=== PATIENT | male | born 1950 | race Caucasian/White ===

== ENCOUNTER → 2018-06-15 00:47 | Outpatient (CLI) | payer MEDICARE, OTHER, SELFPAY ==
--- NOTE | 2018-06-15 07:12 | MERGEMPI_ITS ---
*[facility]* *[facility]* [address] [place] [address] Myocardial Perfusion Imaging - SPECT Hector protocol Date of study: 06/15/2018 *PATIENT PRESENTATION* Height: 175.3cm (69in) Blood Pressure: Weight: 75kg (165lb) BSA: 1.92m^2 Referring physician: Esdras Whitmore Ordering physician: Thomas John Impressions: - Junctional tachycardia in early recovery which resolved appropriately. - Normal myocardial perfusion and contraction after maximal exercise. Summary: 1. Myocardial perfusion imaging: No myocardial perfusion defects noted. 2. The calculated left ventricular ejection fraction after stress: 63%. LV global systolic function is normal. No left ventricular regional motion abnormality. 3. Stress ECG conclusions: The stress ECG is negative. Nonsustained junctional tachycardia in early recovery. 4. Stress: The target heart rate was achieved. The heart rate response to stress is normal. There is a normal resting blood pressure with an appropriate response to stress. The patient experienced no chest pain during stress. Exercise capacity is good (10 METS). 5. Imaging information: gated. Image quality reduced due to diaphragmatic attenuation. Attenuation correction used. Indication: R94.31. History: REASON FOR TESTING: WORSENING GERD SX, 15 LB WEIGHT LOSS. WAS TO HAVE ENDOSCOPY AT [facility] BUT, HE WAS TACHYCARDIC, AND HAD AN ABNORMAL EKG BY ANESTHESIOLOGIST. IT WAS READ JUNCTIONAL RHYTHM, HR [address] DEPRESSION. PMH: ROLDAN PROCEDURE, LONG HX OF GERD, RECENT 15 LB WEIGHT LOSS, ABNORMAL EKG IN [facility]. AP, JEFFERY, HIATAL HERNIA REPAIR,SHOULDER SURGERY. FAMILY HX: FATHER-TOSHA AT AGE 90. SMOKING:NEVER SMOKER. EXCERCISE: Risk factors: Cholesterol: 172mg/dl. HDL: 40mg/dl. LDL: 104mg/dl. Triglycerides: 198mg/dl. ALLERGIES: BEE POLLEN, FAMOTADINE. MEDICATIONS: ANASTROZOLE 1 MG 2X/WEEK, ASPIRIN 325 MG DAILY, ATORVASTATIN 20 MG DAILY, CLONAZEPAM 0.5 MG HS NEEDED, SPIPEN NEEDED, GLUCOSAMINE/ CHONDROITIN 1 DAILY, MULTIVITAMIN 1 DAILY, OMEGA-3 FATTY ACIDS 2 CAPS DAILY, OMEPRAZOLE 40 MG DAILY, RANITIDINE 150 MG BID, SILDENAFIL CITRATE 100 MG NEEDED, TESTOSTERONE 5 GM TOPICAL DAILY. Imaging Technique: Protocol: Hector protocol. Acquisition: Gated SPECT; 1 day - rest/stress. The patient was imaged in the supine position. Attenuation correction used. Isotope administration: - Rest. Tc[99m]-sestamibi. Dose: 10.9mCi. Injection time: 11:35 AM. Injection to stress time: 00:45. - Stress. Tc[99m]-sestamibi. Dose: 31mCi. Injection time: 01:30 PM. 1-2 min before end of exercise Baseline ECG: NO EKG AVAILABLE FOR COMPARISON. TODAY'S EKG- SINUS BRADYCARDIA, HR 57. Normal ECG. Stress protocol: + +---+ +----+ !Stage !HR !BP (mmHg) !Sat ! + +---+ +----+ !Baseline supine !57 !122/78 (93) !----! + +---+ +----+ !Baseline standing !70 !126/82 (97) !98% ! + +---+ +----+ !Stage I; 1.7mph, 10degrees; 3 min !103!134/76 (95) !----! + +---+ +----+ !Stage II; 2.5mph, 12degrees; 3 min!121!144/78 (100)!100%! + +---+ +----+ !Recovery; 1 min !146!138/68 (91) !----! + +---+ +----+ !Recovery; 3 min !114!136/68 (91) !----! + +---+ +----+ !Recovery; 6 min !107!114/70 (85) !----! + +---+ +----+ !Recovery; 9 min !82 !114/68 (83) !----! + +---+ +----+ * Stress results: Maximal heart rate during stress was 148bpm (97% of maximal predicted heart rate). The maximal predicted heart rate was 153bpm. The target heart rate was achieved. The heart rate response to stress is normal. There is a normal resting blood pressure with an appropriate response to stress. The rate-pressure product for the peak heart rate and blood pressure was 65598of Hg/min. The patient experienced no chest pain during stress. Exercise capacity is good (10 METS). Stress ECG: EXCERCISE TESTING ENDED IN 8 MINS, 01 SECS DUE TO FATIGUE . MAX HR WAS 148, 96% OF TARGET. NORMAL BLOOD PRESSURE RESPONSE. METS: 10.16 ECTOPY: RARE APC NOTED. ANGINA: NO REPORTED CHEST PAIN OR PRESSURE. ISCHEMIA: NO ISCHEMIC CHANGES NOTED. FUNCTIONAL CAPACITY: AVERAGE CAPACITY. The stress ECG is negative. Nonsustained junctional tachycardia in early recovery. Hay treadmill score: 8. This score predicts a low risk of cardiac events. Myocardial perfusion: Imaging information: gated. Image quality reduced due to diaphragmatic attenuation. Left ventricular size is normal. No myocardial perfusion defects noted. Ventricular Function (Wall Motion): The calculated left ventricular ejection fraction after stress: 63%. LV global systolic function is normal. No left ventricular regional motion abnormality. Study data: Esdras Whitmore MD supervised and was readily available during the procedure. This study was interpreted by [facility]. Study status: Routine. Consent: The risks, benefits, and alternatives to the procedure were explained to the patient and informed consent was obtained. Procedure: Initial setup. A baseline ECG was recorded. Surface ECG leads and manual cuff blood pressure measurements were monitored. Heart sounds: Normal. Lung sounds: Normal. Treadmill exercise testing was performed using the Hecotr protocol. Study completion: All catheters inserted during the procedure were removed. The patient tolerated the procedure well and was discharged from the lab. Discharge: The patient left the laboratory in stable condition. Birthdate: Patient birthdate: 1950. Sex: Gender: male. Study date: Study date: 06/15/2018. Study time: 07:12 AM. Signature Documentation: - The imaging portion of this study was interpreted by Nuclear Restuarant Crew Worker Esdras Whitmore MD. - The imaging portion of this study was interpreted by Nuclear Radiologist Jessica Daniels MD. - The Stress ECG portion of this study was interpreted by Esdras Whitmore MD. Electronically signed by Esdras Whitmore 06/15/2018 15:07
== END ==
PROVIDERS: PCP Emergency Medicine; Visit Provider Emergency Medicine
DX: R94.31 Abnormal electrocardiogram [ECG] [EKG] (principal); R00.0 Tachycardia, unspecified; I47.1 Supraventricular tachycardia
CPT/HCPCS: 78452; 93017; 93016; 93018

== ENCOUNTER 2019-04-05 09:36 | Outpatient (CLI) | payer MEDICARE, OTHER, SELFPAY ==
[2019-04-06 16:33] LABS: PSA, Screening 0.9 ng/ml (0-4.5)
[2019-04-09 11:58] LABS: Testosterone, Free 26.6 ng/dL (3.47-13.0); Testosterone, Total 760 ng/dL (240-950)
[2019-04-10 12:39] LABS: Estradiol, Mass Spectrometry <10 pg/mL (10-40); Estrone 12 pg/mL (10-60)
[2019-04-11 10:11] LABS: Dihydrotestosterone, Serum 928 pg/mL (112-955)
== END 2019-04-05 09:56 ==
PROVIDERS: PCP Emergency Medicine; Visit Provider Emergency Medicine
DX: E29.1 Testicular hypofunction (principal); Z12.5 Encounter for screening for malignant neoplasm of prostate
CPT/HCPCS: 36415; 84153; 84402; 84403; 82642; 82670; 82679

== ENCOUNTER 2020-04-15 04:30 | Outpatient (CLI) | payer MEDICARE, OTHER, SELFPAY ==
[2020-04-15 11:40] LABS: Abs Immature Grans 0.01 k/cumm (0.0-0.09); Absolute Basophil Count 0.07 k/cumm (0.0-0.2); Absolute Eosinophil Count 0.22 k/cumm (0.0-0.7); Absolute Lymphocyte Count 1.82 k/cumm (1.2-3.4); Absolute Monocyte Count 0.62 k/cumm (0.11-0.7); Basophils % 1.3; HCT 39.1 % (40.0-50.0); HGB 12.6 g/dL (13.5-17.5); Immature Grans % 0.2 %; Lymphocytes % 33.5; Mean Corp. HGB Concentration 32.2 g/dL (32.0-36.0); Mean Corpuscular Hemoglobin 25.3 pg (27.0-33.0); Mean Corpuscular Volume 78.4 fL (80-95); Mean Platelet Volume 9.1 fL (8.0-11.0); Monocytes % 11.4; Neutrophils % 49.6; Platelet Count 267 x1000/uL (130-400); RBC 4.99 m/cumm (4.50-6.00); White Blood Cell Count 5.44 k/cumm (4.4-10.8)
[2020-04-15 12:27] LABS: ALT 28 U/L (16-63); AST 20 U/L (15-37); Albumin 3.9 g/dL (3.4-5.0); Alkaline Phosphatase 87 U/L (46-116); Anion Gap 7.2 mmol/L (3-11); BUN 26 mg/dL (7-18); C-Reactive Protein 0.05 mg/dL (0.0-0.3); CO2 27.8 mmol/L (21.0-32.0); CREATININE 1.01 mg/dL (0.70-1.30); Chloride 110 mmol/L (98-107); Glucose 94 mg/dL (74-106); Potassium 4.6 mmol/L (3.5-5.1); Sodium 145 mmol/L (136-145); Total Protein 6.7 g/dL (6.4-8.2)
[2020-04-15 12:30] LABS: ESR 7 mm/hr (1-20)
[2020-04-16 11:09] LABS: Lyme Ab w Rflx to Lyme Confirm Negative (Negative)
== END 2020-04-15 04:50 ==
PROVIDERS: PCP Emergency Medicine; Visit Provider Emergency Medicine
DX: R53.83 Other fatigue (principal); K40.90 Unilateral inguinal hernia, without obstruction or gangrene, not specified as recurrent; M79.18 Myalgia, other site
CPT/HCPCS: 36415; 80053; 85652; 85025; 86140; 86618

== ENCOUNTER 2020-04-19 04:06 | Outpatient (CLI) | payer MEDICARE, OTHER, SELFPAY ==
[2020-04-19 13:19] LABS: Abs Immature Grans 0.01 k/cumm (0.0-0.09); Absolute Basophil Count 0.04 k/cumm (0.0-0.2); Absolute Eosinophil Count 0.26 k/cumm (0.0-0.7); Absolute Lymphocyte Count 1.71 k/cumm (1.2-3.4); Absolute Monocyte Count 0.49 k/cumm (0.11-0.7); Absolute Neutrophil Count 4.23 k/cumm (1.2-6.7); Basophils % 0.6; Eosinophils % 3.9; HGB 12.2 g/dL (13.5-17.5); Immature Grans % 0.1 %; Lymphocytes % 25.4; Mean Corp. HGB Concentration 32.1 g/dL (32.0-36.0); Mean Corpuscular Hemoglobin 25.1 pg (27.0-33.0); Mean Corpuscular Volume 78.2 fL (80-95); Mean Platelet Volume 8.9 fL (8.0-11.0); Monocytes % 7.3; Neutrophils % 62.7; Platelet Count 283 x1000/uL (130-400); RBC 4.86 m/cumm (4.50-6.00); White Blood Cell Count 6.74 k/cumm (4.4-10.8)
[2020-04-19 13:59] LABS: Iron 17 ug/dL (65-175); Total Iron Binding Capacity 319 ug/dL (250-450); Transferrin Sat 5 % (20-55)
[2020-04-19 14:10] LABS: ESR 8 mm/hr (1-20)
[2020-04-19 14:28] LABS: Ferritin 10 ng/mL (26-388); Vitamin B12 661 pg/mL (193-986)
[2020-04-19 14:29] LABS: Folate > 20.0 ng/mL (8.6-20.0)
[2020-04-19 14:49] LABS: C-Reactive Protein < 0.05 mg/dL (0.0-0.3)
== END 2020-04-19 04:26 ==
PROVIDERS: PCP Emergency Medicine; Visit Provider Emergency Medicine
DX: D64.9 Anemia, unspecified (principal)
CPT/HCPCS: 36415; 85652; 82607; 82728; 82746; 83540; 83550; 85025; 86140

== ENCOUNTER → 2020-04-25 10:52 | Outpatient (BNVA) | payer MEDICARE, OTHER, SELFPAY | PROVIDERS: PCP Emergency Medicine; Referring Provider Emergency Medicine; Visit Provider Surgery | DX: D50.8 Other iron deficiency anemias (principal) | CPT/HCPCS: 99203 ==

== ENCOUNTER 2020-05-22 13:15 | Outpatient (CLI) | payer MEDICARE, OTHER, SELFPAY ==
--- NOTE | 2020-05-22 11:15 | DI.RAD_ITS ---
EXAM: XR PELVIS AP CLINICAL HISTORY: hamstring injury TECHNIQUE: COMPARISON: CT ABD PELVIS WITH CONTRAST from 08/26/2010 CR XR FEMUR RT from 05/22/2020 FINDINGS: An AP view of the pelvis and four views of the femur were obtained. There is narrowing of the cartil aginous joint spaces of both hips superiorly, moderate. Mild acetabular marginal osteophyte formatio n noted. Mild DJD of the SI joints bilaterally. Pelvic phlebolith noted on the left. Unremarkable bowel gas pattern. There are degenerative changes of the medial tibiofemoral joint. No significant bony abnormality see n involving the femoral metaphyseal diaphyseal region. IMPRESSION:
== END 2020-05-22 13:35 ==
PROVIDERS: PCP Emergency Medicine; Referring Provider Emergency Medicine; Visit Provider Student in an Organized Health Care Education/Training Program
DX: M16.0 Bilateral primary osteoarthritis of hip (principal); M53.3 Sacrococcygeal disorders, not elsewhere classified; M17.11 Unilateral primary osteoarthritis, right knee; S76.311A Strain of muscle, fascia and tendon of the posterior muscle group at thigh level, right thigh, initial encounter; S76.012A Strain of muscle, fascia and tendon of left hip, initial encounter; S39.011A Strain of muscle, fascia and tendon of abdomen, initial encounter; X50.9XXA Other and unspecified overexertion or strenuous movements or postures, initial encounter
CPT/HCPCS: 73552; 99204; 99215; 72170

== ENCOUNTER → 2020-06-06 09:44 | Outpatient (BNVA) | payer MEDICARE, OTHER, SELFPAY | PROVIDERS: PCP Emergency Medicine; Referring Provider Emergency Medicine; Visit Provider Surgery | DX: D64.89 Other specified anemias (principal) | CPT/HCPCS: 99212 ==

== ENCOUNTER 2020-07-01 02:36 | Outpatient (CLI) | payer MEDICARE, SELFPAY ==
[2020-07-01 09:13] LABS: Abs Immature Grans 0.01 10^3/uL (0.0-0.06); Absolute Basophil Count 0.07 10^3/uL (0.0-0.2); Absolute Eosinophil Count 0.47 10^3/uL (0.0-0.7); Absolute Lymphocyte Count 2.27 10^3/uL (1.2-3.4); Absolute Monocyte Count 0.48 10^3/uL (0.1-0.8); Absolute Neutrophil Count 2.51 10^3/uL (1.2-6.7); Basophils % 1.2; Eosinophils % 8.1; HGB 13.3 g/dL (13.5-17.5); Immature Grans % 0.2; Lymphocytes % 39.1; MCH 23.3 pg (27.0-33.0); MCHC 30.2 % (32.0-36.0); MCV 77.2 fL (80-95); MPV 8.8 fL (8.0-11.0); Monocytes % 8.3; Neutrophils % 43.1; Nucleated RBC 0 %; Platelet Count 252 10^3/uL (130-400); RDW 15.5 % (11.8-14.1); RDW-SD 42.8 fL; WBC 5.81 10^3/uL (4.4-10.8)
[2020-07-01 09:49] LABS: Iron 53 ug/dL (65-175); Total Iron Binding Capacity 329 ug/dL (250-450); Transferrin Sat 16 % (20-55)
[2020-07-01 10:03] LABS: Ferritin 16 ng/mL (26-388)
[2020-07-04 10:28] LABS: Estradiol, Mass Spectrometry <10 pg/mL (10-40); Estrone <10 pg/mL (10-60)
[2020-07-04 12:44] LABS: Testosterone, Total 650 ng/dL (240-950)
[2020-07-05 11:39] LABS: Dihydrotestosterone, Serum 621 pg/mL (112-955)
== END 2020-07-01 02:56 ==
PROVIDERS: PCP Emergency Medicine; Visit Provider Emergency Medicine
DX: D64.9 Anemia, unspecified (principal); E29.1 Testicular hypofunction
CPT/HCPCS: 36415; 84402; 84403; 82642; 82670; 82679; 82728; 83540; 83550; 85025

== ENCOUNTER 2020-07-19 19:04 | Outpatient (CLI) | payer MEDICARE, SELFPAY ==
--- NOTE | 2020-07-19 08:30 | DI.CT_ITS ---
EXAM: CT ABDOMEN PELVIS W CLINICAL HISTORY: right abd pain, GI bleeding, R10.9, K92.2. TECHNIQUE: Imaging Protocol: Axial computed tomography images with coronal and sagittal reformatted images were created and reviewed CONTRAST MATERIAL: Intravenous: Omnipaque 350 Contrast volume:100 cc Oral: yes COMPARISON: CT ABD PELVIS WITH CONTRAST from 08/26/2010 FINDINGS: ABDOMEN: Lung Bases: Normal where visualized. Liver: Multiple low-density liver lesions are again noted, consistent with cysts. The liver no longe r shows significant fatty infiltration. The patient is status post cholecystectomy. There is no trent iary dilatation. The spleen, adrenals, pancreas and kidneys are unremarkable. PELVIS: Bladder: Symmetric distention, no gross wall thickening. Bowel: Administered oral contrast extends to the level of the cecum. There is severe diverticulosis, greatest in the sigmoid region. There is no evidence of diverticulitis. There is no gross evidence of a mass. There isno obstruction or bowel wall thickening. Increased stool is seen in the cecum. There are surgical clips near the GE junction. There is a tiny hiatal hernia. There is a question o f wall thickening of the antrum of the stomach versus contraction. There is no evidence of perforati on. Peritoneal cavity: No ascites, collection or mesenteric inflammatory response. Bones: Within normal limits. Reproductive organs: Mildly enlarged prostate. Lymph nodes: Unremarkable. Impression: Unremarkable CT scan of the abdomen and pelvis. RADIATION DOSE DELIVERED: Total DLP DATA REPOSITORY: All CT scans at this facility are submitted to the National Radiology Data Registry (NRDR) Dose Index Registry (DIR) with the [employer] (A[employer]). RADIATION OPTIMIZATION: All CT scans at this facility use at least one of these dose optimization te chniques: automated exposure control; mA and/or kV adjustment per patient size (includes targeted exa ms where dose is matched to clinical indication); or iterative reconstruction.
[2020-07-19 09:33] LABS: HCT 41.3 % (40.0-50.0); HGB 12.5 g/dL (13.5-17.5); MCH 23.6 pg (27.0-33.0); MCHC 30.3 % (32.0-36.0); MCV 78.1 fL (80-95); MPV 8.5 fL (8.0-11.0); Platelet Count 236 10^3/uL (130-400); RBC 5.29 10^6/uL (4.36-5.78); RDW 16.5 % (11.8-14.1); RDW-SD 46.5 fL; WBC 4.87 10^3/uL (4.4-10.8)
[2020-07-19] MEDS: Omnipaque 350 MG/ML 50 ML BTL IJ (09:34)
[2020-07-19 09:47] LABS: ALT 28 U/L (16-63); AST 17 U/L (15-37); Albumin 3.5 g/dL (3.4-5.0); Alkaline Phosphatase 76 U/L (46-116); Anion Gap 3.7 mmol/L (3-11); BUN 23 mg/dL (7-18); Bilirubin, Total 0.9 mg/dL (0.2-1.0); CO2 30.3 mmol/L (21.0-32.0); CREATININE 1.18 mg/dL (0.70-1.30); Calcium 9.2 mg/dL (8.5-10.1); Chloride 108 mmol/L (98-107); Glucose 75 mg/dL (74-106); Potassium 4.2 mmol/L (3.5-5.1); Sodium 142 mmol/L (136-145); Total Protein 6.8 g/dL (6.4-8.2)
[2020-07-19 10:35] LABS: Iron 29 ug/dL (65-175); Total Iron Binding Capacity 293 ug/dL (250-450); Transferrin Sat 10 % (20-55)
[2020-07-19] MEDS: Breeza Beverage 473 ML BTL PO ×2 (10:37→10:38)
[2020-07-19] MEDS: Omnipaque 350 MG/ML 100 ML BTL IJ (10:37)
[2020-07-19] MEDS: Normal Saline - Diluent 50 ML VIAL IV (10:37)
[2020-07-19] MEDS: Normal Saline Flush 10 ML SYR IVP (10:38)
== END 2020-07-19 19:24 ==
PROVIDERS: PCP Emergency Medicine; Visit Provider Emergency Medicine
DX: K92.2 Gastrointestinal hemorrhage, unspecified (principal); R10.9 Unspecified abdominal pain
CPT/HCPCS: 80053; 85027; 74177; 83540; 83550; J3490; Q9967

== ENCOUNTER 2020-09-18 15:05 | Outpatient (REF) | payer MEDICARE, SELFPAY ==
[2020-09-18 22:34] LABS: Abs Immature Grans 0.02 10^3/uL (0.0-0.06); Absolute Basophil Count 0.08 10^3/uL (0.0-0.2); Absolute Eosinophil Count 0.32 10^3/uL (0.0-0.7); Absolute Lymphocyte Count 2.56 10^3/uL (1.2-3.4); Absolute Monocyte Count 0.57 10^3/uL (0.1-0.8); Absolute Neutrophil Count 3.43 10^3/uL (1.2-6.7); Basophils % 1.1; Eosinophils % 4.6; HCT 43.1 % (40.0-50.0); HGB 13.6 g/dL (13.5-17.5); Immature Grans % 0.3; Lymphocytes % 36.7; MCH 24.4 pg (27.0-33.0); MCHC 31.6 % (32.0-36.0); MCV 77.4 fL (80-95); MPV 10.3 fL (8.0-11.0); Monocytes % 8.2; Neutrophils % 49.1; Nucleated RBC 0 %; Platelet Count 282 10^3/uL (130-400); RBC 5.57 10^6/uL (4.36-5.78); RDW-SD 44.6 fL; WBC 6.98 10^3/uL (4.4-10.8)
[2020-09-18 22:58] LABS: Iron 29 ug/dL (65-175); Total Iron Binding Capacity 318 ug/dL (250-450); Transferrin Sat 9 % (20-55)
[2020-09-18 23:02] LABS: Ferritin 17 ng/mL (26-388)
== END 2020-09-18 15:25 ==
LOC: NCHCN 15:05
PROVIDERS: PCP Emergency Medicine; Visit Provider Emergency Medicine
DX: K40.90 Unilateral inguinal hernia, without obstruction or gangrene, not specified as recurrent (principal); Z98.890 Other specified postprocedural states; D50.9 Iron deficiency anemia, unspecified
CPT/HCPCS: 82728; 83540; 83550; 85025

== ENCOUNTER 2020-10-02 01:26 | Outpatient (RCR) | payer MEDICARE, SELFPAY ==
[2020-09-26] MEDS: SODIUM FER. GLUC./SUC. 125 MG in Normal Saline 100 ML 110 MG IVPB (08:50)
[2020-09-26] MEDS: Normal Saline Flush 10 ML SYR IVP (08:51)
[2020-10-02] MEDS: SODIUM FER. GLUC./SUC. 125 MG in Normal Saline 100 ML 110 MG IVPB (08:24)
[2020-10-02] MEDS: Normal Saline Flush 10 ML SYR IVP (08:29)
[2020-10-02 10:22] LABS: HCT 40.3 % (40.0-50.0); HGB 12.6 g/dL (13.5-17.5); MCHC 31.3 % (32.0-36.0); MPV 9.3 fL (8.0-11.0); Platelet Count 231 10^3/uL (130-400); RBC 5.04 10^6/uL (4.36-5.78); RDW 17.1 % (11.8-14.1); RDW-SD 47.5 fL; WBC 5.16 10^3/uL (4.4-10.8)
[2020-10-02 10:45] LABS: Ferritin 53 ng/mL (26-388)
== END 2020-10-07 23:59 | disposition home or self-care (01) ==
LOC: INF 01:26
PROVIDERS: PCP Emergency Medicine; Visit Provider Family Medicine
DX: D50.9 Iron deficiency anemia, unspecified (principal)
CPT/HCPCS: 36415; 85027; 96365; 82728; J3490

== ENCOUNTER 2020-10-28 02:12 | Outpatient (CLI) | payer MEDICARE, SELFPAY ==
[2020-10-28 11:09] LABS: HCT 45.6 % (40.0-50.0); HGB 14.6 g/dL (13.5-17.5); MCV 81.1 fL (80-95); MPV 8.9 fL (8.0-11.0); Platelet Count 258 10^3/uL (130-400); RBC 5.62 10^6/uL (4.36-5.78); RDW 16.5 % (11.8-14.1); RDW-SD 48.4 fL; WBC 9.54 10^3/uL (4.4-10.8)
[2020-10-28 11:36] LABS: Ferritin 27 ng/mL (26-388)
== END 2020-10-28 02:32 ==
PROVIDERS: PCP Emergency Medicine; Visit Provider Emergency Medicine
DX: D50.9 Iron deficiency anemia, unspecified (principal)
CPT/HCPCS: 36415; 85027; 82728

== ENCOUNTER 2020-11-06 02:23 | Outpatient (RCR) | payer MEDICARE, SELFPAY ==
[2020-11-06] MEDS: SODIUM FER. GLUC./SUC. 125 MG in Normal Saline 100 ML 110 MG IVPB (12:49)
[2020-11-06] MEDS: Normal Saline Flush 10 ML SYR IVP (12:49)
== END 2020-11-07 23:59 | disposition home or self-care (01) ==
LOC: INF 02:23
PROVIDERS: PCP Emergency Medicine; Visit Provider Family Medicine
DX: D50.9 Iron deficiency anemia, unspecified (principal)
CPT/HCPCS: 96365; J3490

== ENCOUNTER 2020-11-29 19:01 | Outpatient (REF) | payer MEDICARE, SELFPAY ==
[2020-12-04 12:25] LABS: Testosterone, Free 34.3 ng/dL (3.47-13.0); Testosterone, Total 1010 ng/dL (240-950)
[2020-12-04 15:05] LABS: Estradiol, Mass Spectrometry <10 pg/mL (10-40); Estrone <10 pg/mL (10-60)
[2020-12-05 12:13] LABS: Dihydrotestosterone, Serum 407 pg/mL (112-955)
== END 2020-11-29 19:21 ==
LOC: LBN 19:01
PROVIDERS: PCP Emergency Medicine; Visit Provider Emergency Medicine
DX: E29.1 Testicular hypofunction (principal)
CPT/HCPCS: 84402; 84403; 82642; 82670; 82679

== ENCOUNTER 2021-02-27 03:53 | Outpatient (CLI) | payer MEDICARE, SELFPAY ==
[2021-02-27 08:57] LABS: HCT 51.3 % (40.0-50.0); HGB 16.9 g/dL (13.5-17.5); MCH 28.5 pg (27.0-33.0); MCHC 32.9 % (32.0-36.0); MCV 86.7 fL (80-95); Platelet Count 243 10^3/uL (130-400); RBC 5.92 10^6/uL (4.36-5.78); RDW 13.1 % (11.8-14.1); RDW-SD 41.7 fL; WBC 6.88 10^3/uL (4.4-10.8)
[2021-02-27 09:34] LABS: Ferritin 70 ng/mL (26-388)
== END 2021-02-27 03:54 | disposition home or self-care (01) ==
LOC: LBO 03:53
PROVIDERS: PCP Emergency Medicine; Visit Provider Emergency Medicine
DX: D50.9 Iron deficiency anemia, unspecified (principal); K40.90 Unilateral inguinal hernia, without obstruction or gangrene, not specified as recurrent
CPT/HCPCS: 36415; 85027; 82728

== ENCOUNTER 2021-04-15 10:11 | Outpatient (REF) | payer MEDICARE, SELFPAY ==
[2021-04-15 14:17] LABS: Abs Immature Grans 0.02 10^3/uL (0.0-0.06); Absolute Basophil Count 0.07 10^3/uL (0.0-0.2); Absolute Eosinophil Count 0.33 10^3/uL (0.0-0.7); Absolute Lymphocyte Count 1.73 10^3/uL (1.2-3.4); Absolute Monocyte Count 0.46 10^3/uL (0.1-0.8); Absolute Neutrophil Count 3.57 10^3/uL (1.2-6.7); Basophils % 1.1; Eosinophils % 5.3; HCT 50.2 % (40.0-50.0); HGB 16.5 g/dL (13.5-17.5); Immature Grans % 0.3; MCH 28.5 pg (27.0-33.0); MCHC 32.9 % (32.0-36.0); MCV 86.9 fL (80-95); MPV 9.9 fL (8.0-11.0); Monocytes % 7.4; Neutrophils % 57.9; Nucleated RBC 0 %; Platelet Count 208 10^3/uL (130-400); RBC 5.78 10^6/uL (4.36-5.78); RDW 13.2 % (11.8-14.1); RDW-SD 41.9 fL; WBC 6.18 10^3/uL (4.4-10.8)
[2021-04-15 15:28] LABS: ALT 30 U/L (16-63); AST 19 U/L (15-37); Albumin 3.9 g/dL (3.4-5.0); Alkaline Phosphatase 92 U/L (46-116); Bilirubin, Total 1.7 mg/dL (0.2-1.0); Ferritin 34 ng/mL (26-388); Total Protein 6.7 g/dL (6.4-8.2)
[2021-04-15 15:37] LABS: Bilirubin, Direct 0.3 mg/dL (0.0-0.2)
== END 2021-04-15 10:12 | disposition home or self-care (01) ==
LOC: LBN 10:11
PROVIDERS: PCP Emergency Medicine; Visit Provider Emergency Medicine
DX: D50.9 Iron deficiency anemia, unspecified (principal); K40.90 Unilateral inguinal hernia, without obstruction or gangrene, not specified as recurrent; E29.1 Testicular hypofunction; Z98.890 Other specified postprocedural states
CPT/HCPCS: 80076; 84402; 84403; 84410; 82728; 85025

== ENCOUNTER 2021-04-18 04:01 | Outpatient (CLI) | payer MEDICARE, SELFPAY ==
[2021-04-23 23:10] LABS: Testosterone, Bioavailable 762 ng/dL (40-168); Testosterone, Free 55.9 ng/dL (3.28-12.2); Testosterone, Total 1270 ng/dL (240-950)
== END 2021-04-18 04:02 | disposition home or self-care (01) ==
LOC: LBO 04:01
PROVIDERS: PCP Emergency Medicine; Visit Provider Emergency Medicine
DX: E29.1 Testicular hypofunction (principal)
CPT/HCPCS: 36415; 84402; 84403; 84410

== ENCOUNTER 2021-06-27 02:04 | Outpatient (CLI) | payer MEDICARE, SELFPAY ==
[2021-06-27 22:25] LABS: PSA, Screening 2.1 ng/mL (0.0-6.5)
[2021-07-05 18:01] LABS: Testosterone, Free 28.2 ng/dL (3.28-12.2); Testosterone, Total 909 ng/dL (240-950)
== END 2021-06-27 02:05 | disposition home or self-care (01) ==
LOC: LOS 02:04
PROVIDERS: PCP Emergency Medicine; Visit Provider Emergency Medicine
DX: E29.1 Testicular hypofunction (principal); Z12.5 Encounter for screening for malignant neoplasm of prostate
CPT/HCPCS: 36415; 84153; 84402; 84403

== ENCOUNTER 2021-09-11 12:57 | Outpatient (REF) | payer MEDICARE, SELFPAY ==
[2021-09-13 09:28] LABS: COVID-19 RT-PCR UVMMC Result Negative (Negative)
== END 2021-09-11 12:58 | disposition home or self-care (01) ==
LOC: LBN 12:57
PROVIDERS: PCP Emergency Medicine; Visit Provider Nurse Practitioner Family
DX: Z20.822 Contact with and (suspected) exposure to COVID-19 (principal)
CPT/HCPCS: U0003

== ENCOUNTER 2021-09-19 12:58 | Outpatient (REF) | payer MEDICARE, SELFPAY ==
[2021-09-19 16:24] LABS: Abs Immature Grans 0.03 10^3/uL (0.0-0.06); HCT 43.1 % (40.0-50.0); HGB 14.4 g/dL (13.5-17.5); MCH 29.7 pg (27.0-33.0); MCHC 33.4 % (32.0-36.0); MCV 88.9 fL (80-95); MPV 9.7 fL (8.0-11.0); Nucleated RBC 0 %; Platelet Count 199 10^3/uL (130-400); RBC 4.85 10^6/uL (4.36-5.78); RDW 12.3 % (11.8-14.1); RDW-SD 40.4 fL; WBC 8.99 10^3/uL (4.4-10.8)
[2021-09-19 16:55] LABS: BUN 17 mg/dL (7-18); Calcium 9.1 mg/dL (8.5-10.1); Chloride 106 mmol/L (98-107); Glucose 181 mg/dL (74-106); Potassium 4.2 mmol/L (3.5-5.1); Sodium 142 mmol/L (136-145)
[2021-09-19 16:56] LABS: Anion Gap 8.3 mmol/L (3-11); CO2 27.7 mmol/L (21.0-32.0)
[2021-09-19 18:50] LABS: Absolute Basophil Count 0.09 10^3/uL (0.0-0.2); Absolute Lymphocyte Count 2.88 10^3/uL (1.2-3.4); Absolute Monocyte Count 0.63 10^3/uL (0.1-0.8); Absolute Neutrophil Count 5.39 10^3/uL (1.2-6.7); Atypical Lymphocytes % 21; Bands % 7
[2021-09-19 18:53] LABS: Diff Comment Manual Differential; RBC Morphology Normal
[2021-09-20 15:09] LABS: COVID-19 RT-PCR UVMMC Result Negative (Negative)
[2021-09-22 01:59] LABS: B. miyamotoi PCR Negative (Negative); Babesia divergens/MO-1 Negative (Negative); Babesia duncani Negative (Negative); Babesia microti Negative (Negative); Ehrlichia chaffeensis Negative (Negative); Ehrlichia ewingii/canis Negative (Negative); Ehrlichia muris eauclairensis Negative (Negative)
[2021-09-22 10:24] LABS: Lyme Ab w Rflx to Lyme Confirm Negative (Negative)
[2021-09-22 11:55] LABS: Anaplasma phagocytophilum Positive (Negative)
== END 2021-09-19 12:59 | disposition home or self-care (01) ==
LOC: LBN 12:58
PROVIDERS: PCP Emergency Medicine; Visit Provider Nurse Practitioner Family
DX: R68.83 Chills (without fever); R51.9 Headache, unspecified; Z20.822 Contact with and (suspected) exposure to COVID-19; W57.XXXA Bitten or stung by nonvenomous insect and other nonvenomous arthropods, initial encounter; R52 Pain, unspecified; R61 Generalized hyperhidrosis
CPT/HCPCS: 80048; 87798; U0003; U0005; 85025; 86618

== ENCOUNTER 2022-04-17 01:16 | Outpatient (CLI) | payer MEDICARE, SELFPAY ==
[2022-04-17 12:33] LABS: HCT 48.4 % (40.0-50.0); HGB 16.6 g/dL (13.5-17.5); MCH 30.3 pg (27.0-33.0); MCHC 34.3 % (32.0-36.0); MCV 88 fL (80-95); Platelet Count 221 10^3/uL (130-400); RBC 5.48 10^6/uL (4.36-5.78); RDW 12.1 % (11.8-14.1); RDW-SD 39.1 fL
[2022-04-17 13:28] LABS: ALT 23 U/L (16-63); Albumin 4.2 g/dL (3.4-5.0); Alkaline Phosphatase 86 U/L (46-116); Anion Gap 9.3 mmol/L (3-11); BUN 19 mg/dL (7-18); Bilirubin, Total 1.6 mg/dL (0.2-1.0); CO2 27.7 mmol/L (21.0-32.0); Calcium 9.4 mg/dL (8.5-10.1); Calculated LDL 85 mg/dL (<100); Chloride 105 mmol/L (98-107); Cholesterol 149 mg/dL (<200); Glucose 92 mg/dL (74-106); HDL Cholesterol 43 mg/dL (40-60); Potassium 4.5 mmol/L (3.5-5.1); Sodium 142 mmol/L (136-145); Total Protein 7.5 g/dL (6.4-8.2); Triglyceride 105 mg/dL (<150)
[2022-04-17 13:47] LABS: AST 27 U/L (15-37)
[2022-04-17 14:39] LABS: Hemoglobin A1C 5.2 % (<5.7)
[2022-04-21 15:35] LABS: Testosterone, Free 3.31 ng/dL (3.28-12.2); Testosterone, Total 138 ng/dL (240-950)
== END 2022-04-17 01:17 | disposition home or self-care (01) ==
LOC: LOS 01:16
PROVIDERS: PCP Family Medicine; Referring Provider Family Medicine; Visit Provider Family Medicine
DX: D50.9 Iron deficiency anemia, unspecified; K21.9 Gastro-esophageal reflux disease without esophagitis; R73.9 Hyperglycemia, unspecified; I10 Essential (primary) hypertension; E29.1 Testicular hypofunction
CPT/HCPCS: 36415; 80053; 80061; 84153; 84402; 84403; 85027; 83036

== ENCOUNTER 2023-06-09 18:39 | Outpatient (CLI) | payer MEDICARE, SELFPAY ==
[2023-06-09 15:48] LABS: Abs Immature Grans 0.01 10^3/uL (0.0-0.06); Absolute Basophil Count 0.07 10^3/uL (0.0-0.2); Absolute Lymphocyte Count 2.19 10^3/uL (1.2-3.4); Absolute Monocyte Count 0.51 10^3/uL (0.1-0.8); Absolute Neutrophil Count 3.47 10^3/uL (1.2-6.7); Basophils % 1.1; Eosinophils % 4.6; HCT 45.2 % (40.0-50.0); HGB 15.1 g/dL (13.5-17.5); Immature Grans % 0.2; Lymphocytes % 33.4; MCH 28.2 pg (27.0-33.0); MCHC 33.4 % (32.0-36.0); MCV 84 fL (80-95); MPV 8.9 fL (8.0-11.0); Monocytes % 7.8; Neutrophils % 52.9; Platelet Count 221 10^3/uL (130-400); RBC 5.36 10^6/uL (4.36-5.78); RDW-SD 40.2 fL; WBC 6.55 10^3/uL (4.4-10.8)
[2023-06-09 17:11] LABS: ALT 31 U/L (16-63); AST 22 U/L (15-37); Albumin 3.8 g/dL (3.4-5.0); Alkaline Phosphatase 83 U/L (46-116); Anion Gap 7.5 mmol/L (3-11); BUN 31 mg/dL (7-18); CO2 28.5 mmol/L (21.0-32.0); CREATININE 0.9 mg/dL (0.70-1.30); Calcium 9.1 mg/dL (8.5-10.1); Calculated LDL 110 mg/dL (<100); Chloride 108 mmol/L (98-107); Cholesterol 180 mg/dL (<200); Estimated GFR 90.74 (mL/min/1.73m2); Glucose 81 mg/dL (74-106); HDL Cholesterol 42 mg/dL (40-60); Potassium 4.2 mmol/L (3.5-5.1); Sodium 144 mmol/L (136-145); Total Protein 6.8 g/dL (6.4-8.2); Triglyceride 143 mg/dL (<150)
[2023-06-11 10:37] LABS: Hepatitis C Ab w Rflx HCV PCR Negative (Negative)
[2023-06-11 18:14] LABS: PSA, Ultrasensitive 1.8 ng/mL (<= 6.5)
[2023-06-15 17:38] LABS: Testosterone, Total 131 ng/dL (240-950)
== END 2023-06-09 18:40 | disposition home or self-care (01) ==
LOC: LBO 18:39
PROVIDERS: PCP Nurse Practitioner Family; Visit Provider Nurse Practitioner Family
DX: E78.5 Hyperlipidemia, unspecified (principal); Z00.00 Encounter for general adult medical examination without abnormal findings; N40.0 Benign prostatic hyperplasia without lower urinary tract symptoms
CPT/HCPCS: 36415; 80053; 80061; 84153; 84403; 86803; 85025

== ENCOUNTER 2024-04-03 12:04 | Outpatient (REF) | payer MEDICARE, SELFPAY ==
[2024-04-05 10:28] LABS: Lyme Ab w Rflx to Lyme Confirm Negative (Negative)
[2024-04-07 09:19] LABS: Anaplasma phagocytophilum Negative (Negative); B. miyamotoi PCR Negative (Negative); Babesia divergens/MO-1 Negative (Negative); Babesia duncani Negative (Negative); Babesia microti Negative (Negative); Ehrlichia chaffeensis Negative (Negative); Ehrlichia ewingii/canis Negative (Negative); Ehrlichia muris eauclairensis Negative (Negative)
== END 2024-04-03 12:05 | disposition home or self-care (01) ==
LOC: LBN 12:04
PROVIDERS: PCP Nurse Practitioner Family; Visit Provider Nurse Practitioner Family
DX: W57.XXXA Bitten or stung by nonvenomous insect and other nonvenomous arthropods, initial encounter (principal); S80.261A Insect bite (nonvenomous), right knee, initial encounter; X58.XXXA Exposure to other specified factors, initial encounter
CPT/HCPCS: 87798; 86618

== ENCOUNTER → 2024-04-27 12:59 | Outpatient (CLI) | payer MEDICARE, SELFPAY ==
--- NOTE | 2024-04-27 10:25 | DI.CT_ITS ---
Exam(s) CT ABDOMEN PELVIS W EXAM: CT ABDOMEN PELVIS W CLINICAL HISTORY: RLQ pain R10.31. TECHNIQUE: Imaging Protocol: Axial computed tomography images with coronal and sagittal reformatted images were created and reviewed CONTRAST MATERIAL: Intravenous: Omnipaque 350 Contrast volume:100 ml Oral: yes / COMPARISON: CT CT ABDOMEN PELVIS W from 07/19/2020 FINDINGS: ABDOMEN and PELVIS: Surgical clips at GE junction. Lung Bases: No acute findings. Liver: Mild hepatic steatosis. Stable tiny liver cysts. No suspicious mass. Gallbladder and biliary tract: Status post cholecystectomy. No biliary dilation. Pancreas: Normal density. No abnormal calcifications or inflammatory process. No evidence of mass. Spleen: Normal. Kidneys: Normal size, contour and axis. No radiodense stones. No obstructive uropathy. No suspicious masses seen. Adrenal glands: No masses seen. Vasculature: Abdominal aorta non-dilated. Soft tissues: Unremarkable. Bladder: No gross wall thickening. No calculi.No focal mass. Bowel: Prominent diverticulosis in the descending and sigmoid colon. No evidence of diverticulitis. No obstruction. No bowel wall thickening. Appendix not visualized. No right lower quadrant inflam matory changes. Peritoneal cavity: No ascites. No focal collection. No mesenteric inflammatory response. Bones: Unremarkable for age. Reproductive organs: Prostate mildly enlarged, and para seen on base of bladder.. Lymph nodes: No pathologically enlarged lymph nodes. IMPRESSION:: No acute abnormality in the abdomen or pelvis. Diverticulosis without evidence of diverticulitis. Enlarged prostate. RADIATION DOSE DELIVERED: 852.02mGy.cm Total DLP DATA REPOSITORY: All CT scans at this facility are submitted to the National Radiology Data Registry (NRDR) Dose Index Registry (DIR) with the [employer] (ACR). RADIATION OPTIMIZATION: All CT scans at this facility use at least one of these dose optimization te chniques: automated exposure control; mA and/or kV adjustment per patient size (includes targeted exa ms where dose is matched to clinical indication); or iterative reconstruction.
[2024-04-27] MEDS: Barium Sulfate 2% W/V-Creamy Vanilla Smoothie 450 ML BTL PO ×2 (13:18→13:19)
[2024-04-27 14:07] LABS: ALT 31 U/L (16-63); AST 20 U/L (15-37); Albumin 3.8 g/dL (3.4-5.0); Alkaline Phosphatase 70 U/L (46-116); Anion Gap 6.6 mmol/L (3-11); BUN 28 mg/dL (7-18); Bilirubin, Total 1.11 mg/dL (0.2-1.0); CO2 29.4 mmol/L (21.0-32.0); Calcium 9.5 mg/dL (8.5-10.1); Calculated LDL 155 mg/dL (<100); Chloride 105 mmol/L (98-107); Cholesterol 228 mg/dL (<200); Estimated GFR 79.47 (mL/min/1.73m2); Glucose 91 mg/dL (74-106); HDL Cholesterol 43 mg/dL (40-60); Sodium 141 mmol/L (136-145); Total Protein 7.5 g/dL (6.4-8.2); Triglyceride 150 mg/dL (<150); Vitamin B12 1787 pg/mL (193-986)
[2024-04-27] MEDS: Omnipaque 350 MG/ML 100 ML BTL IJ (15:09)
[2024-04-27] MEDS: Normal Saline - Diluent 50 ML VIAL IJ (15:10)
[2024-04-28 09:09] LABS: HIV-1/2 Ag & Ab Screen Negative (Negative)
[2024-04-28 09:30] LABS: HBs Antibody, Quant <3.1 mIU/mL (See Note); Hep B Surface Ab Negative (See Note); Hepatitis B Core Antibody Negative (Negative); Hepatitis B Surface Antigen Negative (Negative)
== END ==
PROVIDERS: PCP Nurse Practitioner Family; Visit Provider Nurse Practitioner Family
DX: Z11.4 Encounter for screening for human immunodeficiency virus [HIV]; Z00.00 Encounter for general adult medical examination without abnormal findings; Z11.59 Encounter for screening for other viral diseases; K21.9 Gastro-esophageal reflux disease without esophagitis; K57.30 Diverticulosis of large intestine without perforation or abscess without bleeding
CPT/HCPCS: 80053; 80061; 86704; 86706; 87340; 87389; 74177; 82607; J3490

== ENCOUNTER 2024-04-27 19:07 | Outpatient (REF) | payer MEDICARE, SELFPAY ==
[2024-04-27 12:23] LABS: Bilirubin Negative (Negative); Blood Negative (Negative); Clarity Clear (Clear); Glucose Negative (Negative); Ketones Negative (Negative); Leukocyte Esterase Negative (Negative); Nitrite Negative (Negative); Specific Gravity 1.015 (1.005-1.025); Urobilinogen 0.2 mg/dL (Up to 0.2); pH 5.5 (5-8)
== END 2024-04-27 19:08 | disposition home or self-care (01) ==
LOC: LBN 19:07
PROVIDERS: PCP Nurse Practitioner Family; Visit Provider Nurse Practitioner Family
DX: R10.31 Right lower quadrant pain (principal)
CPT/HCPCS: 81003

== ENCOUNTER 2024-08-17 18:13 | Outpatient (REF) | payer MEDICARE, SELFPAY ==
[2024-08-17 17:28] LABS: Abs Immature Grans 0.02 10^3/uL (0.0-0.06); Absolute Basophil Count 0.09 10^3/uL (0.0-0.2); Absolute Eosinophil Count 0.45 10^3/uL (0.0-0.7); Absolute Neutrophil Count 3.42 10^3/uL (1.2-6.7); Basophils % 1.3 %; Eosinophils % 6.6 %; HCT 49.5 % (40.0-50.0); HGB 16.8 g/dL (13.5-17.5); Immature Grans % 0.3 %; Lymphocytes % 32.4 %; MCH 29.7 pg (27.0-33.0); MCHC 33.9 % (32.0-36.0); MCV 88 fL (80-95); MPV 10.2 fL (8.0-11.0); Monocytes % 8.8 %; Neutrophils % 50.6 %; Platelet Count 235 10^3/uL (130-400); RBC 5.66 10^6/uL (4.36-5.78); RDW 12.4 % (11.8-14.1); RDW-SD 39.7 fL; WBC 6.78 10^3/uL (4.4-10.8)
[2024-08-17 17:29] LABS: ESR 5 mm/hr (0-20)
[2024-08-17 18:13] LABS: TSH (W/Ref FT4) 1.45 uIU/mL (0.36-3.74)
[2024-08-18 18:00] LABS: Rheumatoid Factor <8.6 IU/mL (<12.0)
[2024-08-21 10:50] LABS: Lyme Ab w Rflx to Lyme Confirm Negative (Negative)
[2024-08-21 14:51] LABS: ANA Interpretation Negative (Negative)
[2024-08-21 20:15] LABS: Anaplasma phagocytophilum Negative (Negative); B. miyamotoi PCR Negative (Negative); Babesia divergens/MO-1 Negative (Negative); Babesia duncani Negative (Negative); Babesia microti Negative (Negative); Ehrlichia chaffeensis Negative (Negative); Ehrlichia ewingii/canis Negative (Negative); Ehrlichia muris eauclairensis Negative (Negative)
== END 2024-08-17 18:14 | disposition home or self-care (01) ==
LOC: LBN 18:13
PROVIDERS: PCP Nurse Practitioner Family; Visit Provider Physician Assistant
DX: R53.83 Other fatigue (principal)
CPT/HCPCS: 85652; 87798; 84443; 85025; 86038; 86431; 86618

== ENCOUNTER 2024-12-29 12:32 | Outpatient (CLI) | payer MEDICARE, SELFPAY ==
--- NOTE | 2024-12-29 12:50 | DI.RAD_ITS ---
Exam(s) XR ELBOW RT COMPLETE EXAM: XR ELBOW RT COMPLETE CLINICAL HISTORY: Olecranon bursitis, rt elbow pain, M25.521. TECHNIQUE: 2D digital imaging was performed of the left elbow. Three images were obtained. AP, lat eral and oblique views were obtained. COMPARISON: No exams were available for comparison FINDINGS: BONES: No acute fracture is present. No bony destructive lesion is seen. JOINTS: The elbow is normally aligned. No joint effusion is seen. SOFT TISSUE: Tiny well corticated old calcification adjacent to the lateral epicondyle. IMPRESSION: No acute abnormality. DATA REPOSITORY: RADIATION DOSE DELIVERED:
== END 2024-12-29 12:52 ==
LOC: DI 12:32
PROVIDERS: PCP Nurse Practitioner Family; Visit Provider Physician Assistant
DX: M25.521 Pain in right elbow (principal)
CPT/HCPCS: 73080

== ENCOUNTER 2025-03-08 11:04 | Outpatient (CLI) | payer MEDICARE, SELFPAY ==
[2025-03-08 12:37] LABS: ALT 31 U/L (16-63); AST 20 U/L (15-37); Albumin 3.9 g/dL (3.4-5.0); Alkaline Phosphatase 79 U/L (46-116); Anion Gap 10.9 mmol/L (3-11); BUN 29 mg/dL (7-18); Bilirubin, Total 1.7 mg/dL (0.2-1.0); CO2 25.1 mmol/L (21.0-32.0); Calcium 9.6 mg/dL (8.5-10.1); Calculated LDL 76 mg/dL (<100); Chloride 109 mmol/L (98-107); Cholesterol 150 mg/dL (<200); Estimated GFR 78.98 (mL/min/1.73m2); Glucose 105 mg/dL (74-106); HDL Cholesterol 46 mg/dL (>or=40); Potassium 4.3 mmol/L (3.5-5.1); Sodium 145 mmol/L (136-145); Total Protein 7.4 g/dL (6.4-8.2); Triglyceride 141 mg/dL (<150)
== END 2025-03-08 11:05 | disposition home or self-care (01) ==
LOC: LOS 11:04
PROVIDERS: PCP Nurse Practitioner Family; Referring Provider Nurse Practitioner Family; Visit Provider Nurse Practitioner Family
DX: E78.5 Hyperlipidemia, unspecified (principal)
CPT/HCPCS: 36415; 80053; 80061

== ENCOUNTER 2025-06-11 16:02 | Outpatient (REF) | payer MEDICARE, SELFPAY ==
[2025-06-13 10:42] LABS: Lyme Ab w Rflx to Lyme Confirm Negative (Negative)
[2025-06-15 14:10] LABS: B. miyamotoi PCR Negative (Negative); Babesia divergens/MO-1 Negative (Negative); Ehrlichia muris eauclairensis Negative (Negative)
== END 2025-06-11 16:03 | disposition home or self-care (01) ==
LOC: LBN 16:02
PROVIDERS: PCP Nurse Practitioner Family; Visit Provider Nurse Practitioner Family
DX: T14.90XA Injury, unspecified, initial encounter (principal); W57.XXXA Bitten or stung by nonvenomous insect and other nonvenomous arthropods, initial encounter
CPT/HCPCS: 87798; 86618

== ENCOUNTER → 2025-10-03 01:30 | Outpatient (CLI) | payer MEDICARE, SELFPAY ==
--- NOTE | 2025-10-03 06:45 | DI.US_ITS ---
Exam(s) US LOWER EXTREMITY VENOUS RT EXAM: US LOWER EXTREMITY VENOUS RT CLINICAL HISTORY: rt leg swelling, M79.89 other specified soft tissue disorder TECHNIQUE: Right lower extremity venous ultrasound performed using grayscale, color-flow, and spectral Doppler analysis. COMPARISON: No exams were available for comparison FINDINGS: The right common femoral, femoral and popliteal veins demonstrate normal compressibility, augmentation, and color Doppler. The posterior tibial and peroneal veins are patent. The saphenofemoral junction is unremarkable. There is no evidence of a Nix cyst. There is a linear heterogeneous structure in the posterior calf deep to the gastroc muscles. It runs a significant length of the calf. The findings are concerning for tendinous injury. IMPRESSION: 1. No evidence of a right lower extremity DVT. 2. Linear heterogeneous structure in the posterior calf. Findings are concerning for tendon injury. This may represent a component of the Achilles tendon or the plantaris tendon. An MRI of the right calf is recommended for further evaluation. DATA REPOSITORY:
== END ==
PROVIDERS: PCP Nurse Practitioner Family; Visit Provider Nurse Practitioner Family
DX: M79.89 Other specified soft tissue disorders (principal); R93.89 Abnormal findings on diagnostic imaging of other specified body structures
CPT/HCPCS: 93971

== ENCOUNTER → 2025-10-25 00:33 | Outpatient (CLI) | payer MEDICARE, SELFPAY ==
--- NOTE | 2025-10-25 09:30 | DI.MRI_ITS ---
Exam(s) MR LOWER EXTREMITY RT WO EXAM: MR LOWER EXTREMITY RT WO CLINICAL HISTORY: f/u US,swelling rt lower extremity,m79.89 TECHNIQUE: Multiplanar multisequence MRI was performed without intravenous contrast. COMPARISON: US US LOWER EXTREMITY VENOUS RT from 10/03/2025 FINDINGS: BONES/JOINTS: No fracture or contusion pattern. No bone lesions identified. MUSCULOTENDINOUS STRUCTURES: The muscles show normal signal and size. No muscular fatty atrophy. No evidence of a tendon tear. The Achilles tendon is intact and shows normal signal. SOFT TISSUES: Unremarkable. OTHER FINDINGS: None. IMPRESSION: Unremarkable MRI of theright lower leg. There is no evidence of a soft tissue mass, fluid collection or tendon tear. DATA REPOSITORY:
== END ==
LOC: DI 00:33
PROVIDERS: PCP Nurse Practitioner Family; Visit Provider Nurse Practitioner Family
DX: M79.89 Other specified soft tissue disorders (principal)
CPT/HCPCS: 73718